=== PATIENT | female | born 1995 | race Caucasian/White ===

== ENCOUNTER 2024-02-02 00:30 | Emergency (ER) | payer OTHER, SELFPAY ==
--- NOTE | ~2024-02-02 | US_ITS ---
EXAMINATION: US OBSTETRICAL ULTRASOUND CLINICAL INFORMATION: patient with vaginal bleeding. COMPARISON: None available. LMP: 12/21/2023. Gestational age by maternal dates is 6 weeks and 1. Estimated date of delivery by maternal dates is 09/26/2024. TECHNIQUE: Suprapubic and transvaginal ultrasound performed. FINDINGS: The uterus is normal in appearance. There is an intrauterine gestational sac with mean sac diameter of 0.9 cm which suggests a 5 week 4 day gestation. A yolk sac is seen. No pole currently identified. There is a 3 x 2 x 3 mm hypoechoic area adjacent to the gestational sac possibly a small subchorionic hemorrhage. MATERNAL ADNEXA: The right maternal ovary measures 2.8 x 1.1 x 2.2 cm. The left maternal ovary measures 5.6 x 3.1 x 5.2 cm. There is a 3 x 2.55 x 2.1 cm anechoic structure associated with the left ovary. There is also a 3.5 x 2.2 x 3.5 cm likely corpus luteal cyst associated with the left ovary. There is no significant maternal adnexal mass. There is a small to moderate amount of free fluid within the cul-de-sac. US/US OB pelvic and transvaginal IMPRESSION: Single intrauterine gestational sac with yolk sac. No pole identified. Findings suggest early . There is an apparent small subchorionic hemorrhage. 3 x 2.5 x 3.1 cm cyst associated with the left ovary. Free fluid within the pelvis.
[2024-02-02 00:47] VITALS: BP 103/65; PULSE 78; RESP 16; TEMP 37; O2SAT 100; BMI 17.5
[2024-02-02 01:07] VITALS: BP 118/64; PULSE 77; RESP 16; TEMP 37.2; O2SAT 99
[2024-02-02 01:07] LABS: MANUAL DIFF FLAG NO
[2024-02-02 01:08] LABS: Basophils Absolute Auto 0.1 X10*3/uL (0.0-0.2); Basophils Percent Auto 0.7 % (0-2); Eosinophils Absolute Auto 0.1 X10*3/uL (0.0-0.4); Eosinophils Percent Auto 1.5 % (0-4); Hematocrit 39.4 % (37.0-47.0); Hemoglobin 13.7 g/dl (12.0-16.0); Imm Gran Abs Auto 0.04 X10*3/uL (0.00-0.03); Imm Gran Pct Auto 0.4 % (0.0-0.4); Lymphocytes Absolute Auto 2.9 X10*3/uL (1.2-4.9); Lymphocytes Percent Auto 32.5 % (20-40); Mean Corpuscular HGB Conc 34.8 g/dl (31.0-35.0); Mean Corpuscular Hemoglobin 29.3 pg (27.0-33.0); Mean Corpuscular Volume 84.2 fL (80.0-98.0); Monocytes Absolute Auto 0.5 X10*3/uL (0.1-1.2); Monocytes Percent Auto 5.7 % (2-11); Neutrophils Absolute Auto 5.3 x10*3/uL (2.0-8.3); Neutrophils Percent Auto 59.2 % (45-73); Platelet Count 210 X10*3/uL (160-400); Red Blood Count 4.68 X10*6/uL (4.20-5.50); Red Cell Distribution Width 12.9 % (11.0-16.0); White Blood Count 8.9 X10*3/uL (4.8-10.8)
[2024-02-02 01:09] LABS: Appearance Urine Clear; Color Urine Yellow; Glucose Urine UA Negative (Negative); Leukocyte Esterase Urine Negative (Negative); Nitrite Urine Negative (Negative); Urine Blood Negative (Negative); Urine Ketones Negative (Negative); Urine Protein Negative (Neg-Trace)
[2024-02-02 01:32] LABS: Anion Gap 11 (12-20); Blood Urea Nitrogen 9 mg/dL (9-16); Calcium 9.7 mg/dL (8.4-10.2); Carbon Dioxide 27 mmol/L (22-29); Chloride 106 mmol/L (96-108); Creatinine Clr Calc Pharmacy 78.5; Estimated Glomerular Filt Rate > 60; Glucose Random 90 mg/dL (60-115); Potassium 3.8 mmol/L (3.3-5.1); Sodium 140 mmol/L (135-145)
[2024-02-02 01:34] LABS: HCG Quantitative 11521 mIU/mL
--- NOTE | 2024-02-02 01:51 | ED_ITS ---
HPI - Female Genitourinary General Chief complaint: Urogenital-Female Stated complaint: 8 weeks preg/abd Time Seen by Provider: 02/02/24 01:44 Source: patient and family Mode of arrival: ambulatory Limitations: no limitations History of Present Illness ED Provider: Dr. Yasmeen Macias HPI Narrative: Patient comes to the emergency room complaining of suprapubic cramping that started approximately 2 hours ago. Patient states that she has a A2 at approximately 8 weeks of gestational age by last menstrual period. Patient states that she has not had had her 1st appointment with OBGYN yet. Patient has an appointment pending in [facility]. Patient states that she has had mild vaginal spotting over the last couple of hours. Patient states that her last 2 miscarriage his happened around 8 weeks of gestational age. Patient denies nausea vomiting or diarrhea Related Data Previous Rx's ?Medication ?Instructions ?Recorded metoclopramide HCl 5 mg tablet 5 mg PO TID PRN nausea and 02/02/24 (Reglan) vomiting #14 tabs Allergies Allergy/AdvReac Type Severity Reaction Status Date / Time No Known Allergies Allergy Verified 02/02/24 00:49 Review of Systems 2 Review of Systems: Constitutional : No Weight loss, No Fever, No Chills, No Night Sweats, No Fatigue, No Malaise ENT/Mouth : No Hearing loss, No Ear Pain, No Nasal Congestion, No Sinus Pain, No Hoarseness, No sore throat, No Rhinorrhea, No Swallowing Difficulty Eyes: No Eye Pain, No Swelling, No Redness, No Foreign Body, No Discharge, No Vision Changes Cardiovascular : No Chest Pain, No SOB, No Dyspnea on Exertion, No Orthopnea, No Edema, No Palpitations Respiratory : No Cough, No Sputum, No Wheezing, No Smoke Exposure, No Dyspnea Gastrointestinal : No Nausea, No Vomiting, No Diarrhea, No Constipation, No abdominal Pain, No Hematochezia, No Melena Genitourinary : Complaining of vaginal spotting and suprapubic cramping at 8 weeks of gestational age, No Dysuria, No Urinary Frequency, No Hematuria, No Urinary Incontinence, No Urgency, No Flank Pain, No Urinary Flow Changes, No Hesitancy Musculoskeletal : No joint pain, No Myalgias, No Joint Swelling Skin : No Skin Lesions, No rash Neuro : No Weakness, No Numbness, No Paresthesias, No Loss of Consciousness, No Dizziness, No Headache Psych : No Anxiety/Panic, No Depression, No SI/HI/AH/VH, No Social Issues, Heme/Lymph: No Bruising, No Bleeding,No Lymphadenopathy Endocrine : No Polyuria, No Polydipsia, No Temperature Intolerance PMFSH Social History Social History Smoked in Last 30 Days: Yes Advance Directives: No Advance Directives Information Provided: Yes Advance Directives on File: No Do you have a plan to hurt others: No Plan Patient : Yes Physical Exam 2 Vital Signs: Vital Signs: Last Vital Signs Temp 99 F 02/02/24 01:07 Pulse 77 02/02/24 01:07 Resp 16 02/02/24 01:07 BP 118/64 02/02/24 01:07 Pulse Ox 99 02/02/24 01:07 O2 Del Method Room Air 02/02/24 01:07 BMI result Body Mass Index 17.5 Const: Other: Appearance: Alert. Oriented X3. No acute distress. Eyes: Pupils equal, round and reactive to light. ENT: Pharynx normal. Neck: Normal inspection. Neck supple. No lymph nodes noted. No crepitus CVS: Normal heart rate and rhythm. Pulses normal. Normal S1 and S2 Respiratory: No respiratory distress. Breath sounds normal. No Wheezing. No rales Abdomen: Soft , suprapubic tenderness to palpation and right lower quadrant pain, no rebound or guarding, No rigidity. No distention. : Cervix is closed, no blood or brown discharge visualized Skin: Skin warm and dry. Normal skin color. Normal skin turgor. Extremities: No lower extremity edema. No Lacerations. No Rash Neuro: Oriented X 3. No motor deficit. No sensory deficit. Moving all extremities. No slurred speech. CN 2 through 12 grossly intact Psych: calm, cooperative, normal affect Medications Administered Discontinued Medications Generic Name Dose Route Start Last Admin Trade Name Freq PRN Reason Stop Dose Admin Sodium Chloride 1,000 mls @ 999 mls/hr 02/02/24 01:59 02/02/24 02:31 Ns IVCONT 02/02/24 02:59 999 mls/hr .Q1H1M ONE Administration Morphine Sulfate 2 mg 02/02/24 01:59 02/02/24 02:33 Morphine Sulfate 2 Mg/Ml Cartridge IVPUSH 02/02/24 02:00 2 mg ONCE ONE Administration Protocol Ondansetron HCl 4 mg 02/02/24 01:59 02/02/24 02:33 Ondansetron Hcl 4 Mg/2 Ml Vial IVPUSH 02/02/24 02:00 4 mg ONCE ONE Administration Medical Decision Making Medical Decision Making [facility] Narrative: -patient receiving IV fluids, IV morphine and Zofran -pelvic ultrasound pending -my interpretation of labs: Normal hematology and chemistry, hCG 11,521 a urine negative for UTI -radiology report: Single intrauterine gestational sac, no pole, dates suggestive of a of 5 weeks and 4 days of gestational age, small subchorionic hemorrhage -I discussed with the patient that a subchorionic hemorrhage puts her at risk of a miscarriage. -patient has a follow-up appointment pending with her OBGYN. -patient is blood type A positive, RhoGAM not indicated -IV fluids and pain medication patient states that she feels much better. -patient requesting p.o. nausea medication to be sent to her pharmacy -discussed with the patient signs and symptoms when to return to the emergency room at any time Lab Data [facility] Lab Attestation statement: I reviewed the patient's lab results. 02/02/24 01:01 02/02/24 01:01 Labs: Lab Results 02/02/24 02/02/24 Range/Units 01:01 02:25 WBC 8.9 (4.8-10.8) X10*3/uL RBC 4.68 (4.20-5.50) X10*6/uL Hgb 13.7 (12.0-16.0) g/dl Hct 39.4 (37.0-47.0) % MCV 84.2 (80.0-98.0) fL MCH 29.3 (27.0-33.0) pg MCHC 34.8 (31.0-35.0) g/dl RDW 12.9 (11.0-16.0) % Plt Count 210 (160-400) X10*3/uL MPV 10.0 (9.4-12.3) fL Immature Gran % (Auto) 0.4 (0.0-0.4) % Neut % (Auto) 59.2 (45-73) % Lymph % (Auto) 32.5 (20-40) % Carlisle % (Auto) 5.7 (2-11) % Eos % (Auto) 1.5 (0-4) % Baso % (Auto) 0.7 (0-2) % Lymph # (Auto) 2.9 (1.2-4.9) X10*3/uL [place] # (Auto) 0.5 (0.1-1.2) X10*3/uL Eos # (Auto) 0.1 (0.0-0.4) X10*3/uL Baso # (Auto) 0.1 (0.0-0.2) X10*3/uL Abs Immat Gran (auto) 0.04 H (0.00-0.03) X10*3/uL Absolute Neuts (auto) 5.3 (2.0-8.3) x10*3/uL Absolute Nucleated RBC 0.000 (0.0-0.012) X10*3/uL Nucleated RBC % (auto) 0.0 (0.0-0.2) /100WBC Sodium 140 (135-145) mmol/L Potassium 3.8 (3.3-5.1) mmol/L Chloride 106 (96-108) mmol/L Carbon Dioxide 27 (22-29) mmol/L Anion Gap 11 L (12-20) BUN 9 (9-16) mg/dL Creatinine 0.72 (0.5-1.4) mg/dL Estim Creat Clear Calc 78.5 Estimated GFR > 60 Random Glucose 90 (60-115) mg/dL Calcium 9.7 (8.4-10.2) mg/dL Beta HCG, Quant 31455 mIU/mL Urine Color Yellow Urine Appearance Clear Urine pH 7.0 (5.0-9.0) Ur Specific Finley 1.010 (1.005-1.025) Urine Protein Negative (Neg-Trace) mg/dL Urine Glucose (UA) Negative (Negative) mg/dL Urine Ketones Negative (Negative) mg/dL Urine Blood Negative (Negative) Urine Nitrite Negative (Negative) Ur Leukocyte Esterase Negative (Negative) Blood Type A Positive Radiology Impression Discussion of test interpretation with radiology: I have reviewed the radiologist's reading. Radiologist Impression: FINDINGS: The uterus is normal in appearance. There is an intrauterine gestational sac with mean sac diameter of 0.9 cm which suggests a 5 week 4 day gestation. A yolk sac is seen. No pole currently identified. There is a 3 x 2 x 3 mm hypoechoic area adjacent to the gestational sac possibly a small subchorionic hemorrhage. MATERNAL ADNEXA: The right maternal ovary measures 2.8 x 1.1 x 2.2 cm. The left maternal ovary measures 5.6 x 3.1 x 5.2 cm. There is a 3 x 2.55 x 2.1 cm anechoic structure associated with the left ovary. There is also a 3.5 x 2.2 x 3.5 cm likely corpus luteal cyst associated with the left ovary. There is no significant maternal adnexal mass. There is a small to moderate amount of free fluid within the cul-de-sac. US/US OB pelvic and transvaginal IMPRESSION: Single intrauterine gestational sac with yolk sac. No pole identified. Findings suggest early . There is an apparent small subchorionic hemorrhage. 3 x 2.5 x 3.1 cm cyst associated with the left ovary. Free fluid within the pelvis. Critical Care Time Critical Care Time Critical Care Time: Yes Total Critical Care Time: 30 Attestation: I have personally provided critical care time. Time includes review of lab data, radiology results, discussion with consultants, and monitoring for potential decompensation. Intervention performed as documented. Discharge Plan Discharge Clinical Impression: Abdominal pain in , , threatened Patient Disposition: Home, Self-Care Instructions: Threatened Miscarriage (ED) Additional Instructions: Please follow-up with your primary care physician tomorrow. If you have any worsening or new symptoms, please return to the emergency room or call 911 Prescriptions: New metoclopramide HCl [Reglan] 5 mg tablet 5 mg PO TID PRN (Reason: nausea and vomiting) Qty: 14 0RF Print Language: Romanian
[2024-02-02] MEDS: 0.9 % Sodium Chloride 1,000 ML 999 ML IVCONT (02:31)
[2024-02-02] MEDS: Morphine Sulfate 2 MG/ML CARTRIDGE IVPUSH (02:33)
[2024-02-02] MEDS: ondansetron HCL 4 MG/2 ML VIAL IVPUSH (02:33)
[2024-02-02 03:49] VITALS: BP 105/61; PULSE 65; RESP 16; TEMP 36.8; O2SAT 98
[2024-02-02 03:50] VITALS: BP 105/61; PULSE 65; RESP 16; TEMP 36.8; O2SAT 98
== END 2024-02-02 03:50 | disposition home or self-care (01) ==
PROVIDERS: Emergency Provider Emergency Medicine; PCP Internal Medicine
DX: O20.0 Threatened abortion (principal); R10.2 Pelvic and perineal pain; R11.2 Nausea with vomiting, unspecified; Z3A.08 8 weeks gestation of pregnancy; Z79.899 Other long term (current) drug therapy
CPT/HCPCS: 36415; 76801; 76817; 80048; 81003; 84702; 85025; 86900; 86901; 96361; 96374; 96375; 99284; J2270; J2405